=== PATIENT | male | born 1985 | race Caucasian/White ===

== ENCOUNTER → 2016-11-11 | Outpatient (REF) | payer OTHER ==
[~2016-11-11] MED LIST: AZEL0.055; CIPR500T89 PO; ELIQ5TAB PO; LORA10TA2 PO; OXYB5TA PO; PANT40TA2 PO; WARF-60 PO; WARF4TAB52 PO
== END ==
LOC: M SMT 13:12
PROVIDERS: ATTEND Nurse Practitioner Women's Health
DX: R30.0 Dysuria (principal)

== ENCOUNTER → 2017-12-01 | Day surgery (SDC) | payer OTHER, SELFPAY ==
[~2017-12-01] MED LIST changes: -AZEL0.055; -CIPR500T89 PO; -ELIQ5TAB PO; +KETOROLAC 60 MG/2 ML VIAL (J1885) As Ordered; +LIDOCAINE 2% INJ 100 MG/5 ML SYRINGE As Ordered; -LORA10TA2 PO; +LR 1,000 ML IV; +MIDAZOLAM INJ 2 MG/2 ML VIAL (J2250) As Ordered; +NORCO, ANEXSIA 5/325MG TABLET (HYDROcodone/ACETAMINOPHEN) PO; +ONDANSETRON 4MG/2ML VIAL (J2405) As Ordered; +ONDANSETRON 4MG/2ML VIAL (J2405) IV; -OXYB5TA PO; -PANT40TA2 PO; +PERCOCET 5MG/325MG TAB PO; +PROPOFOL 200 MG/20 ML VIAL As Ordered; +ROCURONIUM BROMIDE 50 MG/5 ML VIAL As Ordered; -WARF-60 PO; -WARF4TAB52 PO; +ceFAZolin 2 GM/D5W 50 ML IV BAG (J0690 PER 500MG) As Ordered; +fentaNYL 100 MCG/2 ML INJECTION (J3010) As Ordered
[2017-12-01] MEDS: LR 1,000 ML IV (06:45)
[2017-12-01 06:53] LABS: HEMATOCRIT 43.3 % (42.0-52.0); HEMOGLOBIN 15.3 g/dl (14.0-18.0); MEAN CORPUSCULAR HGB CONC 35.3 g/dl (32.0-36.5); MEAN CORPUSCULAR VOLUME 82.2 fl (80.0-96.0); PLATELET COUNT, AUTOMATED 213 10^3/uL (150-450); RED BLOOD COUNT 5.27 10^6/uL (4.30-6.10); RED CELL DISTRIBUTION WIDTH 12.5 % (11.5-14.5)
[2017-12-01 07:18] LABS: ANION GAP 7 MEQ/L (8-16); BLOOD UREA NITROGEN 14 MG/DL (7-18); CALCIUM LEVEL 8.8 MG/DL (8.5-10.1); CARBON DIOXIDE LEVEL 27 MEQ/L (21-32); CHLORIDE LEVEL 106 MEQ/L (98-107); CREATININE FOR GFR 1.23 MG/DL (0.70-1.30); GLOMERULAR FILTRATION RATE > 60.0 (>60); GLUCOSE, FASTING 109 MG/DL (70-100); SODIUM LEVEL 140 MEQ/L (136-145)
[2017-12-01] MEDS: LIDOCAINE 2% MDV 20 ML VIAL As Ordered (08:40)
[2017-12-01] MEDS: BUPIVACAINE HCL 0.25% 30 ML VIAL As Ordered (08:40)
[2017-12-01] MEDS: BACITRACIN OINT 30GM As Ordered (08:40)
[2017-12-01] MEDS: fentaNYL 100 MCG/2 ML INJECTION (J3010) IV ×3 (09:09→09:20)
[2017-12-01] MEDS: PERCOCET 5MG/325MG TAB PO ×2 (09:15→09:50)
== END | disposition home or self-care (01) ==
LOC: M SDC 06:28
DX: N43.3 Hydrocele, unspecified (principal); N50.812 Left testicular pain; E29.1 Testicular hypofunction; K21.9 Gastro-esophageal reflux disease without esophagitis; R06.83 Snoring; T88.59XD Other complications of anesthesia, subsequent encounter; Z79.899 Other long term (current) drug therapy; Z87.891 Personal history of nicotine dependence; Z92.21 Personal history of antineoplastic chemotherapy
CPT/HCPCS: 55040

== ENCOUNTER 2017-12-13 08:51 | Emergency (ER) | payer OTHER ==
[2017-12-13] MEDS: ACETAMINOPHEN 325 MG TAB PO (09:26)
== END 2017-12-13 11:43 | disposition home or self-care (01) ==
LOC: M ED 08:51
DX: N50.82 Scrotal pain (principal); R19.7 Diarrhea, unspecified; R03.0 Elevated blood-pressure reading, without diagnosis of hypertension; T81.31XA Disruption of external operation (surgical) wound, not elsewhere classified, initial encounter; N43.3 Hydrocele, unspecified; K21.9 Gastro-esophageal reflux disease without esophagitis; Z79.899 Other long term (current) drug therapy; Z87.448 Personal history of other diseases of urinary system; Z98.0 Intestinal bypass and anastomosis status; Z98.890 Other specified postprocedural states; Z87.891 Personal history of nicotine dependence
CPT/HCPCS: 76870

== ENCOUNTER 2019-08-27 14:10 | Day surgery (SDC) | payer OTHER ==
[~2019-08-27] VITALS: Ht 188 cm; Wt 105.2 kg
[~2019-08-27 14:10] MED LIST changes: +AZEL0.055; +CETI10TA PO; +CIPR-249 PO; +CURC500C PO; +ELIQ5TAB PO; +FLON1SPR NARES; +KEFL500C17 PO; -KETOROLAC 60 MG/2 ML VIAL (J1885) As Ordered; -LIDOCAINE 2% INJ 100 MG/5 ML SYRINGE As Ordered; +LORA10TA3 PO; -LR 1,000 ML IV; +LR 1,000 ML IV ONE; -MIDAZOLAM INJ 2 MG/2 ML VIAL (J2250) As Ordered; +MONT10TA2 PO; -NORCO, ANEXSIA 5/325MG TABLET (HYDROcodone/ACETAMINOPHEN) PO; +OMEP40CA97 PO; -ONDANSETRON 4MG/2ML VIAL (J2405) As Ordered; -ONDANSETRON 4MG/2ML VIAL (J2405) IV; +OXYB5TAB10 PO; +PANT40TA3 PO; -PERCOCET 5MG/325MG TAB PO; -PROPOFOL 200 MG/20 ML VIAL As Ordered; +PROSTAB PO; +RA T500C2 PO; -ROCURONIUM BROMIDE 50 MG/5 ML VIAL As Ordered; +SING5CHW23 PO; +WARF-60 PO; +WARF4TAB52 PO; -ceFAZolin 2 GM/D5W 50 ML IV BAG (J0690 PER 500MG) As Ordered; +ceFAZolin SOD 2 GM in IV 1 EA IV ONE; -fentaNYL 100 MCG/2 ML INJECTION (J3010) As Ordered
[2019-08-27] MEDS ORDERED: LIDOCAINE 2% INJ 100 MG/5 ML SDV (FOR ANES.) As Ordered ONE (14:42)
[2019-08-27] MEDS ORDERED: dexameTHASONE 4 MG/ML 1ML VIAL (J1100) As Ordered ONE (14:42)
[2019-08-27] MEDS ORDERED: PROPOFOL 200 MG/20 ML VIAL As Ordered ONE (14:42)
[2019-08-27] MEDS ORDERED: ONDANSETRON 4MG/2ML VIAL (J2405) As Ordered ONE (14:42)
[2019-08-27] MEDS ORDERED: BUPIVACAINE HCL 0.25% 30 ML VIAL As Ordered ONE (15:08)
[2019-08-27] MEDS ORDERED: BACITRACIN OINT 30GM As Ordered ONE (15:08)
[2019-08-27] MEDS ORDERED: LIDOCAINE 1% SDV INJ 30 ML VIAL As Ordered ONE (15:08)
[2019-08-27] MEDS ORDERED: MIDAZOLAM INJ 2 MG/2 ML VIAL (J2250) As Ordered ONE (15:16)
[2019-08-27] MEDS ORDERED: fentaNYL 100 MCG/2 ML INJECTION (J3010) As Ordered ONE (15:16)
[2019-08-27] MEDS ORDERED: ACETAMINOPHEN 1000MG 100ML IV BTL (OFIRMEV) (J0131 PER 10MG) As Ordered ONE (15:51)
[2019-08-27] MEDS ORDERED: GLYCOPYRROLATE INJ 0.2 MG/ML 2 ML VIAL As Ordered ONE (15:59)
[2019-08-27] MEDS ORDERED: KETOROLAC 60 MG/2 ML VIAL (J1885) As Ordered ONE (16:57)
[2019-08-27] MEDS ORDERED: PERCOCET 5MG/325MG TAB PO PRN ×2 (18:00→19:00)
[2019-08-27] MEDS ORDERED: fentaNYL 100 MCG/2 ML INJECTION (J3010) IV PRN (18:00)
[2019-08-27] MEDS ORDERED: LR 1,000 ML IV SCH (18:00)
[2019-08-27] MEDS ORDERED: ONDANSETRON 4MG/2ML VIAL (J2405) IV PRN (18:00)
--- NOTE | 2019-08-27 18:22 | RO ---
DATE OF PROCEDURE: 08/27/2019 PREPROCEDURE DIAGNOSIS: Left epididymal cyst. POSTPROCEDURE DIAGNOSIS: Left epididymal cyst. PROCEDURE: Left scrotal exploration and removal of left epididymal cyst. SURGEON: Suraj Benavides MD RECEIVING LEAD: None. ANESTHESIA: General. OPERATIVE INDICATIONS: This is a 34-year-old male who has previously undergone a left hydrocelectomy who has noticed increased size in his left hemiscrotum. Recent scrotal ultrasound notable for a large epididymal cyst. He was brought to the operating room today for treatment. DESCRIPTION OF PROCEDURE: The patient was brought to the operating room and general anesthesia was induced. Prophylactic antibiotics were infused. He was then placed in the supine position and prepped and draped in the usual sterile fashion. At this point, an approximately 4 cm transverse incision was made over his previous left hemiscrotal scar. I then dissected out the scrotal wall layers. Of note, the layers were not easily dissected because of his previous surgery. I was ultimately able to dissect down to the testicle, and it was delivered outside of the left hemiscrotum. While dissecting through the scrotal layers and once I got down to near the tunica albuginea, the large epididymal cyst was punctured and drained clear fluid. Due to all the adhesions and inflammation, I was not able to dissect out the cyst wall. I then dissected along the epididymal head and no additional cysts were seen. Of note, the testicle did appear to be moderately enlarged and the epididymis also appeared to be moderately enlarged. This raised concern for possible epididymo-orchitis. Once I confirmed that there were no more epididymal cysts, I checked for hemostasis and any areas of bleeding were controlled with electrocautery. Once satisfied with hemostasis, the testicle was delivered back inside the left hemiscrotum in its normal anatomic position. The dartos was then closed with a running #3-0 Vicryl suture. I then closed the skin with interrupted #2-0 chromic sutures. Local anesthetic was then applied, and then dressings were applied. This marked the conclusion of the procedure. The patient was then awakened from anesthesia and transferred to the recovery room in stable condition. Estimated blood loss: 5 mL. Complications: None. Specimens: None. PLAN: I will give the patient a course of antibiotics considering how inflamed the testicle and epididymis looked. He will followup in the clinic in about 2 weeks for a postoperative visit.
[2019-08-27] MEDS ORDERED: ACETAMINOPHEN TAB 650MG DOSE (2X325MG) PO PRN (19:00)
[2019-08-27 19:40] VITALS: BP 140/88
== END 2019-08-27 19:45 | disposition home or self-care (01) ==
LOC: M SDC 14:10
PROVIDERS: ATTEND Urology
DX: N50.3 Cyst of epididymis (principal); E29.1 Testicular hypofunction; K21.9 Gastro-esophageal reflux disease without esophagitis; N40.0 Benign prostatic hyperplasia without lower urinary tract symptoms; Z92.21 Personal history of antineoplastic chemotherapy; Z87.891 Personal history of nicotine dependence; G47.33 Obstructive sleep apnea (adult) (pediatric); Z79.899 Other long term (current) drug therapy
CPT/HCPCS: 54840; J0131; J0690; J1100; J1885; J2250; J2405; J3010

== ENCOUNTER → 2021-04-10 | Outpatient (CLI) | payer OTHER ==
[~2021-04-10] MED LIST changes: -LR 1,000 ML IV ONE; +MONT10TA10 PO; -MONT10TA2 PO; +OMEP40CA4 PO; -OMEP40CA97 PO; +PANT40TA29 PO; -PANT40TA3 PO; -ceFAZolin SOD 2 GM in IV 1 EA IV ONE
--- NOTE | 2021-04-10 16:05 | REP ---
INDICATION: LEFT TESTICULAR PAIN. COMPARISON: None. TECHNIQUE: Bilateral testicular ultrasound with Doppler FINDINGS: The right testicle measures 5 x 2.5 x 3.5 cm and the left measures 5.1 x 2.7 x 3.5 cm. The testicular parenchymal echo pattern and vascular pattern is within normal limits bilaterally. The right testicular RI is 0.41 and the left is 0.36. There are bilateral incidental spermatoceles 4 mm size on the right and 5 mm size on the left. There is no evidence of a hydrocele or varicocele. The technologist measured the right scrotal wall 3 mm and the left 6 mm IMPRESSION: Unremarkable testicular ultrasound with incidental bilateral spermatoceles. There is a difference in the thickness of the scrotal soft tissues as described above, however, the significance of this is uncertain and needs to be correlated clinically. <Electronically signed by Rocky Conner > 04/10/21 [id number]
== END ==
LOC: M RAD 14:02
PROVIDERS: ATTEND Urology
DX: N50.812 Left testicular pain (principal); N43.40 Spermatocele of epididymis, unspecified